=== PATIENT | male | born 1970 | race African-American/Black ===

== ENCOUNTER 2016-09-11 14:03 | Emergency (ER) | payer MEDICAID ==
[~2016-09-11] VITALS: Ht 175.3 cm; Wt 75.0 kg
[2016-09-11] MEDS ORDERED: SODIUM CHLORIDE 0.9% 1,000 ML IV ONE (14:28)
[2016-09-11 15:51] VITALS: BP 118/72
== END 2016-09-11 15:59 | disposition home or self-care (01) ==
LOC: ER 14:27
DX: S39.012A Strain of muscle, fascia and tendon of lower back, initial encounter (principal); G89.29 Other chronic pain; J45.901 Unspecified asthma with (acute) exacerbation; F17.200 Nicotine dependence, unspecified, uncomplicated; F12.10 Cannabis abuse, uncomplicated; X50.0XXA Overexertion from strenuous movement or load, initial encounter; Y93.89 Activity, other specified; Y92.89 Other specified places as the place of occurrence of the external cause; Y99.8 Other external cause status
CPT/HCPCS: 93005; 99283; J7030